=== PATIENT | female | born 1960 | race Caucasian/White ===

== ENCOUNTER 2025-07-08 07:53 | Day surgery (SDC) | payer BC ==
[~2025-07-08] VITALS: Ht 167.6 cm; Wt 89.0 kg
[~2025-07-08 07:53] MED LIST: ALLERGY RELIEF60 MG PO; CALCIUM 600 +1 EAC6 PO; CLARITIN10 MG PO; DOXYCYCLINE HY100 M3 PO; FLUTICASONE FU50 MCG INH; IBLOOD GLUCOSE TEST STRIP 1 EA TEST VI PRN; LACTATED RINGER'S 1,000 ML IV SCH; LIDOCAINE HCL 1% 5 ML SDV INJ ONE; SYNTHROID75 MCG PO; TRINESSA1 EACH PO; VENLAFAXINE HCL75 M2 PO; VITAMIN B COMP1 EACH PO; VITAMIN D3250 MC1 PO; [UNRECOGNIZED DRUG - OTHER] IV
[2025-07-08 08:03] VITALS: BP 136/90
[2025-07-08] MEDS ORDERED: LIDOCAINE HCL 2% 5 ML SDV ONE (09:04)
--- NOTE | 2025-07-08 09:52 | NUR ---
07/08/25 [id number] Yaz Quijano 0944: PT ARRIVES TO PACU NON REACTIVE. SHE IS CONNECTED TO MONITORS. REPORT RECEIVED FROM FASHION PHOTOGRAPHER AND REPOSSESSOR. [place] 0952: DR. GORMAN IS AT THE BEDSIDE.
[2025-07-08 10:14] VITALS: BP 151/95
== END 2025-07-08 10:20 | disposition home or self-care (01) ==
LOC: DS 07:53
PROVIDERS: ATTEND Surgery
PROC: 0DJD8ZZ Inspection of Lower Intestinal Tract, Via Natural or Artificial Opening Endoscopic (ICD-10-PCS; principal; 2025-07-08 09:00)
DX: Z12.11 Encounter for screening for malignant neoplasm of colon (principal); K57.30 Diverticulosis of large intestine without perforation or abscess without bleeding; K64.8 Other hemorrhoids; Z88.0 Allergy status to penicillin; Z88.7 Allergy status to serum and vaccine; Z91.030 Bee allergy status
CPT/HCPCS: 00811; J2003; J2704; J7121